=== PATIENT | male | born 1985 | race Caucasian/White ===

== ENCOUNTER 2024-11-29 20:19 | Emergency (ER) | payer OTHER ==
[~2024-11-29 20:19] MED LIST: Iopamidol 370 76% 100 ML VIAL ONE
[2024-11-29 20:40] LABS: #Basophils 0.04 10x3/uL (0.0-0.2); #Eosinophils 0.25 10x3/uL (0.0-0.5); #Monocytes 1.19 10x3/uL (0.0-1.1); #Neutrophils 7.12 10x3/uL (1.5-8.4); %Basophils 0.4 % (0.0-2.0); %Eosinophils 2.2 % (0.0-6.0); %Lymphocytes 24.1 % (18.0-47.0); %Monocytes 10.4 % (0.0-10.0); %Neutrophils 62.5 % (40.0-75.0); Hematocrit 40.4 % (38.8-50.0); Hemoglobin 14.0 g/dL (13.5-17.5); Mean Corpuscular Hemoglobin 30.8 pg (27.0-33.0); Mean Corpuscular Volume 89.0 fL (81.2-95.1); Platelet Count 287 10x3/uL (150-450); Red Blood Cell (RBC) Count 4.54 10x6/uL (4.32-5.72); White Blood Cell (WBC) Count 11.39 10x3/uL (3.5-10.5)
[2024-11-29 21:02] LABS: ALT (SGPT) 23 U/L (Less than 45); AST (SGOT) 22 U/L (11-34); Albumin 4.4 g/dL (3.1-4.5); Alkaline Phosphatase 61 U/L (40-110); Anion Gap 14 mmol/L (10-20); BUN (Urea Nitrogen) 22 mg/dL (8.9-20.6); Bilirubin, Total 0.2 mg/dL (0.3-1.2); Calc. Creatinine Clearance 0 mL/min (70-130); Calcium 9.6 mg/dL (7.8-10.44); Carbon Dioxide 24 mmol/L (22-29); Chloride 100 mmol/L (98-107); Globulin 2.7 g/dL (2.4-3.5); Glucose 102 mg/dL (70-105); Potassium 3.8 mmol/L (3.5-5.1); Sodium 134 mmol/L (136-145)
[2024-11-29 22:03] LABS: Troponin I Less than 0.010 ng/mL (< 0.028)
[2024-11-29 22:58] LABS: Troponin I Less than 0.010 ng/mL (< 0.028)
== END 2024-11-29 23:18 | disposition home or self-care (01) ==
LOC: CSHERS 20:19
DX: R07.89 Other chest pain (principal)
CPT/HCPCS: 71275; 74174; 80053; 84484; 85025; 93005; 94760